=== PATIENT | female | born 1985 | race Two or more races ===

== ENCOUNTER → 2016-07-13 | Outpatient (CLI) | payer BC ==
[2016-07-13 13:56] LABS: Basophils # (auto) 0 uL; Basophils % (auto) 0.5 % (0.0-2.0); DEFINITIVE VIEW TRANSMISSION; Eosinophils # (auto) 0.2 uL; Eosinophils % (auto) 2.2 % (0.0-7.0); Hematocrit 43.5 % (36.0-46.0); Hemoglobin 14.2 g/dL (12.2-16.2); Lymphocytes # (auto) 3.2 uL; Mean Corpuscular Hemoglobin 26.2 pg (28.0-32.0); Mean Corpuscular Hgb Conc. 32.6 g/dL (32.0-36.0); Mean Corpuscular Volume 80.5 fL (80.0-100.0); Mean Platelet Volume 9.3 fL (7.4-10.4); Monocytes # (auto) 0.5 uL; Monocytes % (auto) 5.8 % (0.0-12.0); Neutrophils # (auto) 4.7 uL; Neutrophils % (auto) 54.5 % (37.0-80.0); Platelet Count (auto) 394 10^3/uL (140-450); Red Cell Distribution Width 14.6 % (11.6-16.0); White Blood Cell 8.6 10^3/uL (4.4-10.8)
[2016-07-13 14:24] LABS: Progesterone 0.1 ng/mL (0.15-28)
[2016-07-13 14:39] LABS: BUN/Creatinine Ratio 14.3; Bilirubin, Total 0.8 mg/dL (0.2-1.0); Calcium 9.1 mg/dL (8.5-10.1); Total Protein 8.5 g/dL (6.4-8.2)
== END | disposition home or self-care (01) ==
LOC: LAB 12:43
PROVIDERS: ATTEND Obstetrics & Gynecology
DX: N92.6 Irregular menstruation, unspecified (principal); E66.9 Obesity, unspecified
CPT/HCPCS: 36415; 80053; 80061; 82626; 82670; 82672; 83001; 83002; 83036; 84144; 84146; 84403; 84443; 85025

== ENCOUNTER 2018-09-24 02:11 | Emergency (ER) | payer BC ==
[~2018-09-24] VITALS: Ht 160 cm; Wt 82.6 kg
[2018-09-24 03:54] LABS: Alanine Aminotransferase 222 U/L (13-56); Albumin 4.2 g/dL (3.4-5.0); Anion Gap 9 (5-15); Aspartate Aminotransferase 384 U/L (15-37); BUN/Creatinine Ratio 15.8; Blood Urea Nitrogen 9 mg/dL (7-18); Calcium 8.8 mg/dL (8.5-10.1); Carbon Dioxide 24 mmol/L (21-32); Chloride 107 mmol/L (98-107); GFR African American 159 mL/min; GFR Non-African American 131 mL/min; Glucose 108 mg/dL (74-106); Potassium 3.5 mmol/L (3.5-5.1); Sodium 140 mmol/L (136-145)
[2018-09-24 03:58] LABS: Alkaline Phosphatase 191 U/L (45-117); Total Protein 8.3 g/dL (6.4-8.2)
[2018-09-24 04:03] LABS: Basophils # (auto) 0 uL; Basophils % (auto) 0.4 % (0.0-2.0); Eosinophils # (auto) 0 uL; Eosinophils % (auto) 0.3 % (0.0-7.0); Hematocrit 44.6 % (36.0-46.0); Hemoglobin 15.1 g/dL (12.2-16.2); Lymphocytes % (auto) 15.7 % (10.0-50.0); Mean Corpuscular Hemoglobin 30.3 pg (28.0-32.0); Mean Corpuscular Hgb Conc. 33.8 g/dL (32.0-36.0); Mean Corpuscular Volume 89.8 fL (80.0-100.0); Monocytes # (auto) 0.3 uL; Monocytes % (auto) 4.2 % (0.0-12.0); Neutrophils # (auto) 5.2 uL; Neutrophils % (auto) 79.4 % (37.0-80.0); Platelet Count (auto) 288 10^3/uL (140-450); Red Blood Cells 4.97 10^6/uL (4.0-5.20); White Blood Cell 6.6 10^3/uL (4.4-10.8)
[2018-09-24] MEDS ORDERED: SODIUM CHLORIDE 0.9% 1,000 ML IV ONE (06:52)
[2018-09-24] MEDS ORDERED: PANTOPRAZOLE 40 MG/10 ML VIAL INJ IV ONE (07:45)
[2018-09-24 08:13] VITALS: BP 105/70
[2018-09-24] MEDS ORDERED: FAMOTIDINE (10MG/ML) 2ML VL IV ONE (09:00)
== END 2018-09-24 10:12 | disposition home or self-care (01) ==
LOC: ER 02:16
DX: K29.70 Gastritis, unspecified, without bleeding (principal)
CPT/HCPCS: 36415; 71045; 74176; 80053; 83880; 84484; 85025; 85379; 94761; 96361; 96374; 99284; J3490

== ENCOUNTER 2022-09-20 06:08 | Emergency (ER) | payer BC, MEDICAID ==
[~2022-09-20] VITALS: Ht 162.6 cm; Wt 90.0 kg
[2022-09-20 07:27] LABS: Urine Bacteria FEW /hpf (None Seen); Urine Blood Negative /uL (Negative); Urine Clarity Clear (Clear); Urine Color Yellow (Yellow); Urine Mucus FEW (None Seen); Urine Protein, UAD Negative (Negative); Urine Specific Gravity 1.019 (1.001-1.035); Urine Urobilinogen Normal (Negative); Urine WBC 7 /hpf (0 - 5); Urine pH 5.5 (5.0-8.0)
[2022-09-20 07:48] LABS: Albumin 3.6 g/dL (3.4-5.0); Potassium 3.8 mmol/L (3.5-5.1)
[2022-09-20 07:50] LABS: Basophils # (auto) 0 10 ^3/uL (0-0.2); Eosinophils # (auto) 0.1 10 ^3/uL (0-0.8); Lymphocytes # (auto) 1.5 10 ^3/uL (0.4-5.4); Monocytes # (auto) 0.4 10 ^3/uL (0-1.3)
[2022-09-20 07:53] LABS: BUN/Creatinine Ratio 16.1 (10.0-20.0); Bilirubin, Total 0.5 mg/dL (0.2-1.0); Calcium 8.3 mg/dL (8.5-10.1); Total Protein 7.9 g/dL (6.4-8.2)
[2022-09-20 07:54] LABS: Eosinophils % (auto) 1.7 % (0.0-7.0); Hematocrit 38.7 % (36.0-46.0); Hemoglobin 12.6 g/dL (12.2-16.2); Mean Corpuscular Hemoglobin 26.7 pg (28.0-32.0); Mean Corpuscular Hgb Conc. 32.6 g/dL (32.0-36.0); Monocytes % (auto) 8.8 % (0.0-12.0); Neutrophils # (auto) 2.3 10 ^3/uL (1.6-8.6); Neutrophils % (auto) 53.5 % (37.0-80.0); Nucleated Red Blood Cells % 0.3 %; Red Blood Cells 4.72 10^6/uL (4.0-5.20); Red Cell Distribution Width 13.9 % (11.8-14.3); White Blood Cell 4.3 10^3/uL (4.4-10.8)
[2022-09-20] MEDS ORDERED: NITR-87 PO (08:17)
[2022-09-20 09:19] VITALS: BP 17/69; PULSE 72; RESP 16; TEMP 97.7; O2SAT 99
== END 2022-09-20 09:09 | disposition home or self-care (01) ==
LOC: ER 06:08
DX: N39.0 Urinary tract infection, site not specified (principal); R10.2 Pelvic and perineal pain; Z32.02 Encounter for pregnancy test, result negative
CPT/HCPCS: 36415; 74176; 80053; 81001; 81025; 83690; 84702; 85025